=== PATIENT | male | born 1940 | race Caucasian/White ===

== ENCOUNTER 2020-12-17 14:35 | Observation (INO) | payer BC ==
[~2020-12-17] VITALS: Ht 188 cm; Wt 91.5 kg
[~2020-12-17 14:35] MED LIST: Aspirin EC81 MG PO; HYDCHL25; HYDCHL25 PO; LOSA50 PO; LOSHYD100; POTA10T; Stool Softener100 MG
[2020-12-17 16:12] LABS: Alanine Aminotransfer (ALT/SGP 16 U/L (12-78); Albumin, Blood 3.3 g/dL (3.4-5.0); Albumin/Globulin Ratio 1.4 (0.8-1.8); Alk Phos 65 U/L (50-136); Anion Gap 6 mmol/L (6-16); Aspartate Aminotrans (AST/SGOT 10 U/L (12-37); Bilirubin, Total 0.3 mg/dL (0.1-1.0); Blood Urea Nitrogen 44 mg/dL (8-24); Bun/Creatinine Ratio 56.6 (12.0-20.0); CO2, Blood 25 mmol/L (21-32); Calcium, Blood 8.4 mg/dL (8.5-10.1); Chloride, Blood 112 mmol/L (98-108); Creatinine, Blood 0.78 mg/dL (0.60-1.20); Globulin, Blood 2.4 g/dL (2.2-4.0); Glomerular Filtration Rate >60 (60-); Glucose, Blood 108 mg/dL (70-99); Potassium, Blood 3.8 mmol/L (3.5-5.5); Sodium, Blood 143 mmol/L (136-145); Total Protein, Blood 5.7 g/dL (6.4-8.2); Troponin I <0.015 ng/mL (0.000-0.040)
[2020-12-17 16:24] LABS: Source, Urine Clean Catch
[2020-12-17 16:47] LABS: Appearance, Urine Clear (Clear); Bilirubin, Urine Neg (Neg); Blood, Urine Neg (Neg); Color, Urine Yellow (P-Yellow); Glucose Qualitative, Urine Neg (Neg); Ketones, Urine Neg (Neg); Leukocyte Esterase, Urine 1+ (Neg); Nitrite, Urine Neg (Neg); Protein, Urine Neg (Neg); Urobilinogen, Urine NORM (Normal)
[2020-12-17 17:05] LABS: BASOPHILS ABSOLUTE AUTO 0.04 K/mm3 (0.00-0.23); BASOPHILS PERCENT AUTO 0 % (0-2); EOSINOPHILS ABSOLUTE AUTO 0.01 K/mm3 (0.00-0.68); EOSINOPHILS PERCENT AUTO 0 % (0-6); Hematocrit 27.5 % (37.0-53.0); Hemoglobin 9.2 g/dL (13.5-17.5); IMMATURE GRAN ABSOLUTE AUTO 0.19 K/mm3 (0.00-0.10); IMMATURE GRAN PERCENT AUTO 1 % (0-1); LYMPHOCYTES ABSOLUTE AUTO 1.18 K/mm3 (0.84-5.20); LYMPHOCYTES PERCENT AUTO 8 % (21-46); MONOCYTES ABSOLUTE AUTO 0.58 K/mm3 (0.16-1.47); MONOCYTES PERCENT AUTO 4 % (4-13); Mean Corpuscular HGB 30.9 pg (26.0-34.0); Mean Corpuscular HGB Conc 33.5 g/dL (31.5-36.5); Mean Corpuscular Volume 92 fL (80-100); Mean Platelet Volume 10.3 fL (9.1-12.4); NEUTROPHILS ABSOLUTE AUTO 12.73 K/mm3 (1.96-9.15); NEUTROPHILS PERCENT AUTO 86 % (41-73); Platelet Count 295 K/mm3 (150-400); RDW Coefficient Variation 13.3 % (11.7-14.2); RDW Standard Deviation 44.4 fL (35.1-46.3); Red Blood Cell Count 2.98 M/mm3 (4.30-5.90); White Blood Cell Count 14.73 K/mm3 (4.00-11.30)
[2020-12-17 17:16] LABS: Bacteria Mod /hpf; Red Blood Cells, Urine 0-2 /hpf (0-2); Squamous Epithelial Cells Rare /hpf (Few)
[2020-12-17] MEDS ORDERED: LATANOPROST2.5 M3 BOTHEYES (18:53)
[2020-12-17] MEDS ORDERED: LOSARTAN POTAS100 MG PO (18:53)
[2020-12-17] MEDS ORDERED: POTCHL20ER PO (19:24)
[2020-12-17 22:06] LABS: IMMATURE RETIC FRACTION 19.1 % (2.3-16.0); RETIC HGB EQUIVALENT 36.7 pg (28.20-36.60); RETICULOCYTE ABSOLUTE 0.1048 M/mm3 (0.0200-0.1100); RETICULOCYTE COUNT PERCENT 3.64 % (0.50-2.50)
[2020-12-17 22:16] LABS: Percent Saturation 36.7 % (20.0-50.0)
[2020-12-18 05:18] LABS: BASOPHILS ABSOLUTE AUTO 0.04 K/mm3 (0.00-0.23); BASOPHILS PERCENT AUTO 0 % (0-2); EOSINOPHILS ABSOLUTE AUTO 0.14 K/mm3 (0.00-0.68); EOSINOPHILS PERCENT AUTO 1 % (0-6); Hematocrit 22.7 % (37.0-53.0); Hemoglobin 7.8 g/dL (13.5-17.5); IMMATURE GRAN ABSOLUTE AUTO 0.09 K/mm3 (0.00-0.10); IMMATURE GRAN PERCENT AUTO 1 % (0-1); LYMPHOCYTES ABSOLUTE AUTO 2.56 K/mm3 (0.84-5.20); LYMPHOCYTES PERCENT AUTO 23 % (21-46); MONOCYTES ABSOLUTE AUTO 0.79 K/mm3 (0.16-1.47); MONOCYTES PERCENT AUTO 7 % (4-13); Mean Corpuscular HGB 31.2 pg (26.0-34.0); Mean Corpuscular HGB Conc 34.4 g/dL (31.5-36.5); Mean Corpuscular Volume 91 fL (80-100); Mean Platelet Volume 10.2 fL (9.1-12.4); NEUTROPHILS ABSOLUTE AUTO 7.43 K/mm3 (1.96-9.15); NEUTROPHILS PERCENT AUTO 67 % (41-73); Platelet Count 240 K/mm3 (150-400); RDW Coefficient Variation 13.9 % (11.7-14.2); RDW Standard Deviation 45.1 fL (35.1-46.3); White Blood Cell Count 11.05 K/mm3 (4.00-11.30)
[2020-12-18 05:59] LABS: Alanine Aminotransfer (ALT/SGP 12 U/L (12-78); Albumin/Globulin Ratio 1.4 (0.8-1.8); Alk Phos 65 U/L (50-136); Anion Gap 5 mmol/L (6-16); Aspartate Aminotrans (AST/SGOT 6 U/L (12-37); Bilirubin, Total 0.2 mg/dL (0.1-1.0); Blood Urea Nitrogen 35 mg/dL (8-24); Bun/Creatinine Ratio 48.3 (12.0-20.0); CO2, Blood 26 mmol/L (21-32); Calcium, Blood 8.4 mg/dL (8.5-10.1); Chloride, Blood 113 mmol/L (98-108); Creatinine, Blood 0.73 mg/dL (0.60-1.20); Globulin, Blood 2.1 g/dL (2.2-4.0); Glomerular Filtration Rate >60 (60-); Glucose, Blood 105 mg/dL (70-99); Potassium, Blood 3.1 mmol/L (3.5-5.5); Sodium, Blood 144 mmol/L (136-145); Total Protein, Blood 5.1 g/dL (6.4-8.2)
--- NOTE | 2020-12-18 06:39 | NUR ---
SHIFT SUMMARY PATIENT ALERT AND ORIENTED. IS QUIET AND SLOW TO RESPOND. ANSWERS QUESTIONS APPROPRIATELY. PATIENT HAD NO COMPLAINTS OF PAIN OR SHORTNESS OF BREATH. SLEPT WELL OVERNIGHT. IV PATENT AND INFUSING. BED IN LOWEST POSITION WITH WHEELS LOCKED AND ALARM ON. CALL LIGHT WITHIN REACH. REPORT GIVEN TO ONCOMING RN.
--- NOTE | 2020-12-18 19:14 | NUR ---
SHIFT SUMMARY PT IS AO AND CONFUSED AT TIMES. PT DENIES PAIN, N/V, SOB. PT AMBULATES WITH ONE PERSON ASSIST. PT HAD MELENA TODAY AND GUIAIC STOOL SAMPLE SENT TO LAB. PT'S VISITED TODAY. PT WORKED WITH PT/OT AND DID WELL. TELE HAS BEEN RUNNING SINUS RHYTHM. PLAN IS TO MONITOR HGB LEVELS. PT IS IN BED, CALL LIGHT IN REACH, BED IN LOW POSITION.
[2020-12-19 05:27] LABS: BASOPHILS ABSOLUTE AUTO 0.04 K/mm3 (0.00-0.23); BASOPHILS PERCENT AUTO 1 % (0-2); EOSINOPHILS ABSOLUTE AUTO 0.59 K/mm3 (0.00-0.68); EOSINOPHILS PERCENT AUTO 7 % (0-6); Hematocrit 20.9 % (37.0-53.0); IMMATURE GRAN ABSOLUTE AUTO 0.16 K/mm3 (0.00-0.10); IMMATURE GRAN PERCENT AUTO 2 % (0-1); LYMPHOCYTES ABSOLUTE AUTO 2.51 K/mm3 (0.84-5.20); LYMPHOCYTES PERCENT AUTO 30 % (21-46); MONOCYTES ABSOLUTE AUTO 0.65 K/mm3 (0.16-1.47); MONOCYTES PERCENT AUTO 8 % (4-13); Mean Corpuscular HGB 31.8 pg (26.0-34.0); Mean Corpuscular HGB Conc 33.5 g/dL (31.5-36.5); Mean Corpuscular Volume 95 fL (80-100); Mean Platelet Volume 10.3 fL (9.1-12.4); NEUTROPHILS ABSOLUTE AUTO 4.53 K/mm3 (1.96-9.15); NEUTROPHILS PERCENT AUTO 53 % (41-73); Platelet Count 219 K/mm3 (150-400); RDW Coefficient Variation 14.4 % (11.7-14.2); RDW Standard Deviation 47.6 fL (35.1-46.3); White Blood Cell Count 8.48 K/mm3 (4.00-11.30)
[2020-12-19 06:07] LABS: Albumin, Blood 2.8 g/dL (3.4-5.0); Anion Gap 5 mmol/L (6-16); Blood Urea Nitrogen 25 mg/dL (8-24); Bun/Creatinine Ratio 32.5 (12.0-20.0); CO2, Blood 25 mmol/L (21-32); Chloride, Blood 113 mmol/L (98-108); Creatinine, Blood 0.77 mg/dL (0.60-1.20); Glomerular Filtration Rate >60 (60-); Glucose, Blood 97 mg/dL (70-99); Phosphorus, Blood 3.2 mg/dL (2.5-4.9); Potassium, Blood 3.6 mmol/L (3.5-5.5); Sodium, Blood 143 mmol/L (136-145)
--- NOTE | 2020-12-19 06:42 | NUR ---
SHIFT SUMMARY PATIENT ALERT AND ORIENTED. HAD NO COMPLAINTS OF PAIN OR SHORTNESS OF BREATH. SLEPT WELL OVERNIGHT WITH MINIMAL NEEDS. IV PATENT AND FLUSHED. BED IN LOWEST POSITION WITH WHEELS LOCKED AND ALARM ON. CALL LIGHT WITHIN REACH. REPORT GIVEN TO ONCOMING RN.
--- NOTE | 2020-12-19 08:54 | NUR ---
SPOKE TO DR LOUIS- HE IS AWARE THE PT HAD BREAKFAST. PLAN IS TO MAKE THE PT NPO AT THIS TIME. HOWEVER CT REQUESTED THE PT TO DRINK WATER UNTIL THE CT SCAN. CT PLANNED FOR 1000. PT CURRENTLY SITTING UP IN THE CHAIR. VITALS STABLE DENIES ANY DIZZINESS. HGB 7.0. PLANNED FOR 2 UNITS PRBC, LAB DRAWING THE TYPE AND CROSS CURRENTLY. PER DR LOUIS HOLD ASPIRIN THIS MORNING IV LASIX TO BE GIVEN AFTER THE FIRST UNIT OF PRBC'S. [facility] TRANSFER TO [facility] WHEN A BED IS AVAILABLE, IMAGES HAVE ALREADY BEEN SENT PER SIDE GLUER LORI. WILL CTM PT, COVID TEST COMPLETED PRE TRANSFER AWAITING RESILTS.
--- NOTE | 2020-12-19 09:16 | NUR ---
CALLED IMAGING- CHANGED THE ORDER FOR THE CT SCAN TO STAT AND KAILA IS REQUESTING THE IMAGES STAT. CALLED IMAGING AND NOTIFIED OF THE CHANGE. ORIGIONAL PLAN FOR CT WAS 1000.
[2020-12-19 09:33] LABS: Influenza A, PCR NEGATIVE (NEGATIVE); Influenza B, PCR NEGATIVE (NEGATIVE); Resp Syncytial Virus, PCR NEGATIVE (NEGATIVE); SARS-Cov-2 (COVID-19) PCR, MMC NEGATIVE (NEGATIVE)
[2020-12-19 09:51] LABS: Stool Occult Blood Guaiac 1 Pos (Neg)
--- NOTE | 2020-12-19 10:40 | NUR ---
SPOKE TO DR LOUIS- ORDER RECIEVED TO CANCEL THE CT ABDOMEN THE PT CAN HAVE IT DONE AFTER THE TRANSFER TO [facility].
[2020-12-19 16:03] LABS: Hematocrit 24.6 % (37.0-53.0); Hemoglobin 8.3 g/dL (13.5-17.5); Mean Corpuscular HGB 31.2 pg (26.0-34.0); Mean Corpuscular HGB Conc 33.7 g/dL (31.5-36.5); Mean Corpuscular Volume 93 fL (80-100); Mean Platelet Volume 9.7 fL (9.1-12.4); Platelet Count 238 K/mm3 (150-400); RDW Coefficient Variation 14.7 % (11.7-14.2); RDW Standard Deviation 47.9 fL (35.1-46.3); Red Blood Cell Count 2.66 M/mm3 (4.30-5.90); White Blood Cell Count 9.49 K/mm3 (4.00-11.30)
--- NOTE | 2020-12-19 16:40 | NUR ---
DISCHARGE NOTE- PT ANGIE TRANSFERED TO [facility] IN [place], REPORT CALLED TO DAQUAN SERRATO AT 1531. PT ALERT AND ORIENTED AT THE BEDSIDE AT THE TIME OF TRANSFER. SPOUSE AWARE OF THE PT ISSUE AND REASON FOR TRANSFER. PT STILL DENIES ANY PAIN REPEAT CBC COMPLETED PRIOR TO PT LEAVING HGB UP TO 8.3 FROM 7.0 AFTER 1 UNIT PRBC'S WERE TRANSFUSED. VITALS HAVE REMAINED STABLE T/O THE DAY. ONE LARGE BLACK TARRY STOOL WAS PASSED AROUND 1430 TODAY. PASSED ALL ON IN REPORT TO DAQUAN SERRATO. PT HAD NO S&S OF DISTRESS NOTED AT THE TIME OF TRANSFER. PER REPORT FROM [place] SERRATO PT SPOUSE CAN COME TO SEE HIM 1 VISITOR PER PT PER DAY 24 HOURS A DAY.
== END 2020-12-19 16:20 | disposition short-term general hospital (02) ==
LOC: ER 14:35 → MEDS 14:36 → ER 19:09 → ERHOLD 19:09 → MEDS 21:25 → ENPENDDIS 12-19 09:46 → MEDS 12-19 16:20
PROVIDERS: Emergency Medicine; Family Medicine; ADMIT Internal Medicine
DX: A41.9 Sepsis, unspecified organism (principal); N39.0 Urinary tract infection, site not specified; I10 Essential (primary) hypertension; D64.9 Anemia, unspecified; E86.0 Dehydration; R53.1 Weakness; R42 Dizziness and giddiness; K92.1 Melena; K92.2 Gastrointestinal hemorrhage, unspecified; R63.0 Anorexia; Z68.25 Body mass index [BMI] 25.0-25.9, adult; Z87.891 Personal history of nicotine dependence
CPT/HCPCS: 0241U; 36415; 70450; 71260; 80053; 80069; 81001; 82272; 82728; 83540; 83550; 83735; 83880; 84484; 85025; 85027; 85045; 87086; 93005; 93010; 96372-59; 96374; 97116; 97162; 97165; 97535; 99285-25; A9270; A9270-GY; C9113; J0696; J1650; J7030; J7050; P9016; Q9967

== ENCOUNTER → 2021-01-09 | Outpatient (CLI) | payer BC ==
[~2021-01-09] MED LIST changes: +LATANOPROST2.5 M3 BOTHEYES; +LOSARTAN POTAS100 MG PO; +POTCHL20ER PO
[2021-01-09 08:41] LABS: Source, Urine Clean Catch
[2021-01-09 13:47] LABS: Appearance, Urine Clear (Clear); Bilirubin, Urine Neg (Neg); Blood, Urine 1+ (Neg); Color, Urine Yellow (P-Yellow); Glucose Qualitative, Urine Neg (Neg); Ketones, Urine Neg (Neg); Leukocyte Esterase, Urine Neg (Neg); Nitrite, Urine Neg (Neg); Protein, Urine Neg (Neg); Urobilinogen, Urine NORM (Normal)
[2021-01-09 13:58] LABS: Bacteria Rare /hpf; Squamous Epithelial Cells Few /hpf (Few)
== END | disposition home or self-care (01) ==
LOC: LAB 08:40 → LAB SHORT 08:40
PROVIDERS: Internal Medicine
DX: R82.90 Unspecified abnormal findings in urine (principal)
CPT/HCPCS: 81001

== ENCOUNTER → 2021-03-02 | Outpatient (CLI) | payer BC | LOC: LAB SHORT 16:00 → LAB 16:00 → EDSTATUS 01-06 11:55 → LAB FUT 01-06 11:55 | DX: A04.8 Other specified bacterial intestinal infections (principal); R82.90 Unspecified abnormal findings in urine | CPT/HCPCS: 87338 ==

== ENCOUNTER 2021-04-26 15:28 | Emergency (ER) | payer BC ==
[~2021-04-26] VITALS: Ht 188 cm; Wt 87.5 kg
[2021-04-26 15:59] LABS: BASOPHILS ABSOLUTE AUTO 0.04 K/mm3 (0.00-0.23); BASOPHILS PERCENT AUTO 0 % (0-2); EOSINOPHILS ABSOLUTE AUTO 0.05 K/mm3 (0.00-0.68); EOSINOPHILS PERCENT AUTO 0 % (0-6); Hematocrit 41.2 % (37.0-53.0); Hemoglobin 13.9 g/dL (13.5-17.5); IMMATURE GRAN ABSOLUTE AUTO 0.07 K/mm3 (0.00-0.10); IMMATURE GRAN PERCENT AUTO 0 % (0-1); LYMPHOCYTES ABSOLUTE AUTO 0.91 K/mm3 (0.84-5.20); LYMPHOCYTES PERCENT AUTO 6 % (21-46); MONOCYTES ABSOLUTE AUTO 0.87 K/mm3 (0.16-1.47); MONOCYTES PERCENT AUTO 6 % (4-13); Mean Corpuscular HGB 29.3 pg (26.0-34.0); Mean Corpuscular HGB Conc 33.7 g/dL (31.5-36.5); Mean Corpuscular Volume 87 fL (80-100); Mean Platelet Volume 9.4 fL (9.1-12.4); NEUTROPHILS ABSOLUTE AUTO 13.96 K/mm3 (1.96-9.15); NEUTROPHILS PERCENT AUTO 88 % (41-73); Platelet Count 253 K/mm3 (150-400); RDW Coefficient Variation 13.9 % (11.7-14.2); RDW Standard Deviation 43.9 fL (35.1-46.3); Red Blood Cell Count 4.75 M/mm3 (4.30-5.90)
[2021-04-26 16:19] LABS: Alanine Aminotransfer (ALT/SGP 17 U/L (12-78); Albumin/Globulin Ratio 1.3 (0.8-1.8); Alk Phos 68 U/L (50-136); Anion Gap 9 mmol/L (6-16); Aspartate Aminotrans (AST/SGOT 27 U/L (12-37); Bilirubin, Total 0.9 mg/dL (0.1-1.0); Blood Urea Nitrogen 23 mg/dL (8-24); Bun/Creatinine Ratio 20.9 (12.0-20.0); CO2, Blood 23 mmol/L (21-32); CPK Creatine Kinase 127 U/L (39-308); Calcium, Blood 9.1 mg/dL (8.5-10.1); Chloride, Blood 109 mmol/L (98-108); Globulin, Blood 3.1 g/dL (2.2-4.0); Glomerular Filtration Rate >60 (60-); Glucose, Blood 104 mg/dL (70-99); Sodium, Blood 141 mmol/L (136-145); Total Protein, Blood 7.1 g/dL (6.4-8.2)
== END 2021-04-26 21:12 | disposition home or self-care (01) ==
LOC: ER 15:28
PROVIDERS: Physician Assistant
DX: R55 Syncope and collapse (principal); E86.0 Dehydration; I10 Essential (primary) hypertension; Z87.891 Personal history of nicotine dependence; Z79.82 Long term (current) use of aspirin; Z79.899 Other long term (current) drug therapy; Z91.048 Other nonmedicinal substance allergy status
CPT/HCPCS: 80053; 82550; 85025; 93005; 93010; 99284-25; J7120

== ENCOUNTER 2021-05-19 12:37 | Emergency (ER) | payer BC, MEDICARE ==
[~2021-05-19] VITALS: Ht 188 cm; Wt 87.5 kg
[2021-05-19 13:38] LABS: BASOPHILS ABSOLUTE AUTO 0.05 K/mm3 (0.00-0.23); BASOPHILS PERCENT AUTO 0 % (0-2); EOSINOPHILS PERCENT AUTO 0 % (0-6); Hematocrit 45.9 % (37.0-53.0); IMMATURE GRAN ABSOLUTE AUTO 0.23 K/mm3 (0.00-0.10); IMMATURE GRAN PERCENT AUTO 1 % (0-1); LYMPHOCYTES ABSOLUTE AUTO 1.41 K/mm3 (0.84-5.20); LYMPHOCYTES PERCENT AUTO 6 % (21-46); MONOCYTES ABSOLUTE AUTO 1.77 K/mm3 (0.16-1.47); MONOCYTES PERCENT AUTO 7 % (4-13); Mean Corpuscular HGB 30.6 pg (26.0-34.0); Mean Corpuscular HGB Conc 34.9 g/dL (31.5-36.5); Mean Corpuscular Volume 88 fL (80-100); Mean Platelet Volume 9.7 fL (9.1-12.4); NEUTROPHILS ABSOLUTE AUTO 20.61 K/mm3 (1.96-9.15); NEUTROPHILS PERCENT AUTO 86 % (41-73); Platelet Count 302 K/mm3 (150-400); RDW Coefficient Variation 14.4 % (11.7-14.2); RDW Standard Deviation 46.4 fL (35.1-46.3); Red Blood Cell Count 5.23 M/mm3 (4.30-5.90); White Blood Cell Count 24.07 K/mm3 (4.00-11.30)
[2021-05-19 13:54] LABS: Alanine Aminotransfer (ALT/SGP 22 U/L (12-78); Albumin, Blood 3.9 g/dL (3.4-5.0); Alk Phos 76 U/L (50-136); Anion Gap 9 mmol/L (6-16); Aspartate Aminotrans (AST/SGOT 19 U/L (12-37); Bilirubin, Total 0.9 mg/dL (0.1-1.0); Blood Urea Nitrogen 22 mg/dL (8-24); Bun/Creatinine Ratio 24.9 (12.0-20.0); CO2, Blood 24 mmol/L (21-32); Chloride, Blood 103 mmol/L (98-108); Creatinine, Blood 0.88 mg/dL (0.60-1.20); Globulin, Blood 3.9 g/dL (2.2-4.0); Glomerular Filtration Rate >60 (60-); Glucose, Blood 129 mg/dL (70-99); Potassium, Blood 3.9 mmol/L (3.5-5.5); Sodium, Blood 136 mmol/L (136-145); Total Protein, Blood 7.8 g/dL (6.4-8.2)
[2021-05-19 16:15] LABS: Source, Urine Clean Catch
[2021-05-19 16:25] LABS: Appearance, Urine Hazy (Clear); Bilirubin, Urine Neg (Neg); Blood, Urine 2+ (Neg); Color, Urine Amber (P-Yellow); Glucose Qualitative, Urine Neg (Neg); Ketones, Urine 1+ (Neg); Leukocyte Esterase, Urine 3+ (Neg); Nitrite, Urine Neg (Neg); Protein, Urine 2+ (Neg); Specific Gravity, Urine 1.025 (1.003-1.022); Urobilinogen, Urine 1+ (Normal)
[2021-05-19 16:39] LABS: Bacteria Mod /hpf; Calcium Oxalate Crystals Few /hpf; Mucus Heavy (0-Heavy); Squamous Epithelial Cells Rare /hpf (Few)
[2021-05-19 16:40] LABS: Hyaline Casts 0-2 /lpf (0-2)
[2021-05-19] MEDS ORDERED: ONDA4ODT MM (18:12)
[2021-05-19] MEDS ORDERED: CEFP200 PO (18:12)
[2021-05-19] MEDS ORDERED: ERYT.5TO BOTHEYES (18:12)
== END 2021-05-19 18:23 | disposition home or self-care (01) ==
LOC: ER 12:37
PROVIDERS: Physician Assistant
DX: N39.0 Urinary tract infection, site not specified (principal); I10 Essential (primary) hypertension; Z91.048 Other nonmedicinal substance allergy status; F03.90 Unspecified dementia, unspecified severity, without behavioral disturbance, psychotic disturbance, mood disturbance, and anxiety; Z79.82 Long term (current) use of aspirin; Z79.899 Other long term (current) drug therapy
CPT/HCPCS: 36415; 74176; 80053; 81001; 83690; 84484; 85025; 87086; 99284-25; A9270

== ENCOUNTER → 2021-05-28 | Outpatient (CLI) | payer BC ==
[~2021-05-28] MED LIST changes: +CEFP200 PO; +ERYT.5TO BOTHEYES; +ONDA4ODT MM
[2021-05-28 13:25] LABS: Source, Urine Clean Catch
[2021-05-28 18:59] LABS: Appearance, Urine Clear (Clear); Bilirubin, Urine Neg (Neg); Blood, Urine 1+ (Neg); Color, Urine Yellow (P-Yellow); Glucose Qualitative, Urine Neg (Neg); Ketones, Urine Neg (Neg); Leukocyte Esterase, Urine 1+ (Neg); Nitrite, Urine Neg (Neg); Protein, Urine Neg (Neg); Specific Gravity, Urine 1.015 (1.003-1.022); Urobilinogen, Urine NORM (Normal)
[2021-05-28 20:20] LABS: Bacteria Rare /hpf; Red Blood Cells, Urine 0-2 /hpf (0-2); Squamous Epithelial Cells Few /hpf (Few)
[2021-05-28 20:21] LABS: Transitional Epithelial Cells Few /hpf (0-Rare)
== END | disposition home or self-care (01) ==
LOC: LAB 13:23 → LAB SHORT 13:23
PROVIDERS: Internal Medicine
DX: N39.0 Urinary tract infection, site not specified (principal)
CPT/HCPCS: 81001

== ENCOUNTER → 2021-07-01 | Outpatient (CLI) | payer BC | END | disposition home or self-care (01) | LOC: LAB 14:43 → LAB SHORT 14:43 | DX: D48.5 Neoplasm of uncertain behavior of skin (principal) | CPT/HCPCS: 88305 ==

== ENCOUNTER 2023-03-04 15:56 | Emergency (ER) | payer BC ==
[~2023-03-04] VITALS: Ht 188 cm; Wt 90.7 kg
[2023-03-04 16:42] LABS: BASOPHILS ABSOLUTE AUTO 0.03 K/mm3 (0.00-0.23); BASOPHILS PERCENT AUTO 0 % (0-2); EOSINOPHILS PERCENT AUTO 0 % (0-6); Hemoglobin 14.6 g/dL (13.5-17.5); IMMATURE GRAN ABSOLUTE AUTO 0.07 K/mm3 (0.00-0.10); IMMATURE GRAN PERCENT AUTO 1 % (0-1); LYMPHOCYTES ABSOLUTE AUTO 0.48 K/mm3 (0.84-5.20); LYMPHOCYTES PERCENT AUTO 6 % (21-46); MONOCYTES PERCENT AUTO 10 % (4-13); Mean Corpuscular HGB 31.6 pg (26.0-34.0); Mean Corpuscular HGB Conc 34.8 g/dL (31.5-36.5); Mean Corpuscular Volume 91 fL (80-100); Mean Platelet Volume 9.6 fL (9.1-12.4); NEUTROPHILS ABSOLUTE AUTO 7.07 K/mm3 (1.96-9.15); NEUTROPHILS PERCENT AUTO 84 % (41-73); Platelet Count 177 K/mm3 (150-400); RDW Coefficient Variation 12.7 % (11.7-14.2); RDW Standard Deviation 42.3 fL (35.1-46.3); Red Blood Cell Count 4.62 M/mm3 (4.30-5.90); White Blood Cell Count 8.45 K/mm3 (4.00-11.30)
[2023-03-04 17:06] LABS: Albumin, Blood 3.8 g/dL (3.4-5.0); Albumin/Globulin Ratio 1.1 (0.8-1.8); Bilirubin, Total 0.9 mg/dL (0.1-1.0); Bun/Creatinine Ratio 27.7 (12.0-20.0); Calcium, Blood 9.1 mg/dL (8.5-10.1); Creatinine, Blood 0.87 mg/dL (0.60-1.20); Globulin, Blood 3.6 g/dL (2.2-4.0); Potassium, Blood 3.7 mmol/L (3.5-5.5); Total Protein, Blood 7.4 g/dL (6.4-8.2)
[2023-03-04 17:45] LABS: Source, Urine Voided
[2023-03-04 17:47] LABS: Appearance, Urine Hazy (Clear); Bilirubin, Urine Neg (Neg); Blood, Urine 5+ (Neg); Color, Urine Amber (P-Yellow); Glucose Qualitative, Urine Neg (Neg); Ketones, Urine Neg (Neg); Leukocyte Esterase, Urine 3+ (Neg); Nitrite, Urine Pos (Neg); Protein, Urine 3+ (Neg); Urobilinogen, Urine NORM (Normal)
[2023-03-04 17:56] LABS: Bacteria Many /hpf; Squamous Epithelial Cells Rare /hpf (Few); White Blood Cells, Urine 25-50 /hpf (0-5)
[2023-03-04 18:16] LABS: Influenza A, PCR NEGATIVE (NEGATIVE); Influenza B, PCR NEGATIVE (NEGATIVE); Resp Syncytial Virus, PCR NEGATIVE (NEGATIVE); SARS-Cov-2 (COVID-19) PCR, MMC NEGATIVE (NEGATIVE)
[2023-03-04] MEDS ORDERED: CEPH500 PO (19:24)
[2023-03-04 19:30] VITALS: BP 129/67
== END 2023-03-04 19:39 | disposition home or self-care (01) ==
LOC: ER 15:56
PROVIDERS: Emergency Medicine
DX: N39.0 Urinary tract infection, site not specified (principal); Z20.822 Contact with and (suspected) exposure to COVID-19; Z87.891 Personal history of nicotine dependence; Z88.8 Allergy status to other drugs, medicaments and biological substances; Z79.82 Long term (current) use of aspirin; Z79.2 Long term (current) use of antibiotics; Z79.899 Other long term (current) drug therapy; I10 Essential (primary) hypertension; Z86.59 Personal history of other mental and behavioral disorders
CPT/HCPCS: 0241U; 71046; 80053; 81001; 85025; 87077; 87086; 87186; 93005; 93010; 96365; 99284-25; A9270; J0696

== ENCOUNTER → 2023-03-28 | Outpatient (CLI) | payer BC ==
[~2023-03-28] MED LIST changes: +CEPH500 PO
[2023-03-28 12:53] LABS: Source, Urine Clean Catch
[2023-03-28 17:47] LABS: Appearance, Urine Cloudy (Clear); Bilirubin, Urine Neg (Neg); Blood, Urine 1+ (Neg); Color, Urine Yellow (P-Yellow); Glucose Qualitative, Urine Neg (Neg); Ketones, Urine Neg (Neg); Leukocyte Esterase, Urine 3+ (Neg); Nitrite, Urine Pos (Neg); Protein, Urine 2+ (Neg); Urobilinogen, Urine NORM (Normal)
[2023-03-28 17:58] LABS: White Blood Cells, Urine TNTC /hpf (0-5)
[2023-03-28 17:59] LABS: Bacteria Many /hpf; Squamous Epithelial Cells Not Seen /hpf (Few)
== END | disposition home or self-care (01) ==
LOC: LAB 11:48 → LAB SHORT 11:48
PROVIDERS: Internal Medicine
DX: N39.0 Urinary tract infection, site not specified (principal)
CPT/HCPCS: 81001; 87077; 87086; 87186

== ENCOUNTER → 2023-04-11 | Outpatient (CLI) | payer BC ==
[2023-04-11 14:10] LABS: Source, Urine Clean Catch
[2023-04-11 17:56] LABS: Appearance, Urine Clear (Clear); Bilirubin, Urine Neg (Neg); Blood, Urine Neg (Neg); Color, Urine Yellow (P-Yellow); Glucose Qualitative, Urine Neg (Neg); Ketones, Urine Neg (Neg); Leukocyte Esterase, Urine Neg (Neg); Nitrite, Urine Neg (Neg); Protein, Urine Neg (Neg); Specific Gravity, Urine 1.015 (1.003-1.022); Urobilinogen, Urine NORM (Normal)
== END | disposition home or self-care (01) ==
LOC: LAB SHORT 13:35 → LAB 13:35 → EDSTATUS 03-31 13:45 → LAB FUT 03-31 13:45
PROVIDERS: Internal Medicine
DX: N39.0 Urinary tract infection, site not specified (principal)
CPT/HCPCS: 81003

== ENCOUNTER 2024-05-26 16:10 | Inpatient (IN) | payer MEDICARE, BC ==
[~2024-05-26] VITALS: Ht 190.5 cm; Wt 89.5 kg
[~2024-05-26 16:10] MED LIST changes: -LATANOPROST2.5 M3 BOTHEYES
[2024-05-26 17:53] LABS: BASOPHILS ABSOLUTE AUTO 0.04 K/mm3 (0.00-0.23); BASOPHILS PERCENT AUTO 0 % (0-2); EOSINOPHILS PERCENT AUTO 0 % (0-6); Hematocrit 46.2 % (37.0-53.0); Hemoglobin 15.2 g/dL (13.5-17.5); IMMATURE GRAN ABSOLUTE AUTO 0.13 K/mm3 (0.00-0.10); IMMATURE GRAN PERCENT AUTO 1 % (0-1); LYMPHOCYTES ABSOLUTE AUTO 0.93 K/mm3 (0.84-5.20); LYMPHOCYTES PERCENT AUTO 5 % (21-46); MONOCYTES ABSOLUTE AUTO 0.92 K/mm3 (0.16-1.47); MONOCYTES PERCENT AUTO 5 % (4-13); Mean Corpuscular HGB 30.2 pg (26.0-34.0); Mean Corpuscular HGB Conc 32.9 g/dL (31.5-36.5); Mean Corpuscular Volume 92 fL (80-100); Mean Platelet Volume 9.5 fL (9.1-12.4); NEUTROPHILS ABSOLUTE AUTO 16.48 K/mm3 (1.96-9.15); NEUTROPHILS PERCENT AUTO 89 % (41-73); Platelet Count 288 K/mm3 (150-400); RDW Coefficient Variation 12.5 % (11.7-14.2); RDW Standard Deviation 42.3 fL (35.1-46.3); Red Blood Cell Count 5.03 M/mm3 (4.30-5.90)
[2024-05-26 18:13] LABS: Albumin, Blood 3.7 g/dL (3.4-5.0); Bilirubin, Total 0.7 mg/dL (0.1-1.0); Bun/Creatinine Ratio 19.6 (12.0-20.0); Creatinine, Blood 0.66 mg/dL (0.60-1.20); Globulin, Blood 3.8 g/dL (2.2-4.0); Potassium, Blood 3.6 mmol/L (3.5-5.5); Total Protein, Blood 7.5 g/dL (6.4-8.2)
[2024-05-26] MEDS ORDERED: Lactulose 200 GM/300 ML Enema 300ML BTL PR ONE (18:55)
[2024-05-27 12:23] LABS: Source, Urine Clean Catch
[2024-05-27 12:27] LABS: Appearance, Urine Hazy (Clear); Bilirubin, Urine Neg (Neg); Blood, Urine 4+ (Neg); Color, Urine Amber (P-Yellow); Glucose Qualitative, Urine Neg (Neg); Ketones, Urine 3+ (Neg); Leukocyte Esterase, Urine 3+ (Neg); Nitrite, Urine Pos (Neg); Protein, Urine 2+ (Neg); Specific Gravity, Urine 1.025 (1.003-1.022); Urobilinogen, Urine NORM (Normal)
[2024-05-27 12:42] LABS: White Blood Cells, Urine 25-50 /hpf (0-5)
[2024-05-27 12:43] LABS: Bacteria Many /hpf; Squamous Epithelial Cells Not Seen /hpf (Few)
[2024-05-27] MEDS ORDERED: NS 1,000 ML IV SCH ×2 (12:50→14:00)
[2024-05-27] MEDS ORDERED: CefTRIAXone Sodium 1,000 MG in NS 100 ML IV ONE (12:50)
[2024-05-27] MEDS ORDERED: FLU VACC TS2024-25(6MOS UP)/PF 45 MCG/0.5 ML SYRINGE IM SCH (13:10)
--- NOTE | 2024-05-27 19:20 | NUR ---
ADMIT/SHIFT SUMMARY: PT UNABLE TO WAKE LONG ENOUGH FOR INITAL ORIENTATION QUESTIONS. PT APPEARS VERY LETHARGIC AND WILL OPEN EYES LONG ENOUGH TO STATE "YES" OR "NO." PT AT BEDSIDE THROUGHOUT SHIFT AND ABLE TO ASSIST WITH ASSESSMENT. CHRISTIANSON IN PLACE DRAINING YELLOW URINE TO GRAVITY. NS INFUSING @125/HR. SMALL PATCHES OF ECZEMA NOTED ON RFA. REDNESS NOTED ON SACRAL REGION. PT STATES PT HAS BEEN DECLINING FOR SEVERAL WEEKS. PER TANK CAR MECHANIC, PT HAS HAD "SEVERAL BOWEL MOVEMENTS" POST ENEMA BUT HAS NOT HAD ANY SINCE ARRIVAL TO MEDICAL FLOOR. PT GRUNTS IN PAIN BUT UNABLE TO STATE WHERE PAIN IS LOCATED. CALL LIGHT IN REACH. BED IN LOWEST POSITION.
[2024-05-27 19:26] VITALS: BP 157/59
[2024-05-27] MEDS ORDERED: Latanoprost 0.005% Opth Soln 2.5 ML BOTHEYES SCH (21:00)
[2024-05-27] MEDS ORDERED: Sennosides 8.6 MG Tab PO SCH (21:00)
[2024-05-27] MEDS ORDERED: Docusate Sodium 100 MG Cap PO SCH (21:00)
[2024-05-27] MEDS ORDERED: Lactobacil 2-S.Thermo-Bifido 1 1 Cap PO SCH (21:00)
--- NOTE | 2024-05-27 21:02 | NUR ---
Upon assessment, RN noted patient felt warm to touch/hot. Temperature previously assessed via temporal sensor at around 99 degrees F, reassessed via axillary to 102.8 degrees F. RN notified Christiano with hospitalist services, provider to place orders for suppository route Tylenol for fever.
[2024-05-27] MEDS ORDERED: Acetaminophen 650 MG Supp PR PRN (21:05)
[2024-05-28 02:26] VITALS: BP 146/59
[2024-05-28 05:48] LABS: Hematocrit 35.6 % (37.0-53.0); Hemoglobin 11.9 g/dL (13.5-17.5); Mean Corpuscular HGB 30.6 pg (26.0-34.0); Mean Corpuscular HGB Conc 33.4 g/dL (31.5-36.5); Mean Corpuscular Volume 92 fL (80-100); Mean Platelet Volume 10.1 fL (9.1-12.4); Platelet Count 230 K/mm3 (150-400); RDW Coefficient Variation 12.9 % (11.7-14.2); RDW Standard Deviation 43.1 fL (35.1-46.3); Red Blood Cell Count 3.89 M/mm3 (4.30-5.90); White Blood Cell Count 19.77 K/mm3 (4.00-11.30)
[2024-05-28 06:16] LABS: Bun/Creatinine Ratio 18.8 (12.0-20.0); Calcium, Blood 7.9 mg/dL (8.5-10.1); Creatinine, Blood 0.69 mg/dL (0.60-1.20); Potassium, Blood 3.3 mmol/L (3.5-5.5)
[2024-05-28] MEDS ORDERED: Potassium Chloride 20 MEQ TabCR PO ONE (07:25)
[2024-05-28] MEDS ORDERED: Aspirin 81 MG TabEC PO SCH (09:00)
[2024-05-28] MEDS ORDERED: Losartan Potassium 50 MG Tab PO SCH (09:00)
[2024-05-28] MEDS ORDERED: HydroCHLOROthiazide 25 mg Tab PO SCH (09:00)
[2024-05-28] MEDS ORDERED: CefTRIAXone Sodium 1,000 MG in NS 100 ML IV SCH (09:00)
[2024-05-28] MEDS ORDERED: Enoxaparin 40 MG/0.4 ML SYR SC SCH (09:00)
[2024-05-28 15:34] VITALS: BP 132/58
--- NOTE | 2024-05-28 16:50 | NUR ---
VSS, A-Ox1, confused but follows directions, shows no signs of pain, no signs of SOB, ambulates with 1-2x assist and walker to chair, on RA. Lungs diminished, heart regular, bowel sounds normative, mckinnon in place draining clear yellow urine. Pt can make some needs known, call maki in hand, bed in lowest position.
[2024-05-28] MEDS ORDERED: Acetaminophen 325 MG TABLET PO PRN (18:27)
[2024-05-28 19:20] VITALS: BP 143/54
[2024-05-29 05:14] VITALS: BP 139/60
--- NOTE | 2024-05-29 05:18 | NUR ---
SUMMARY- NO NEW ISSUES. PT REMAINS CONFUSED. PT SPENT THE NIGHT. PT HAS BEEN REPOSITIONED TOLERATED. PT CHRISTIANSON DRAINING TO GRAVITY. ORAL CARE PROVIDED. PT HAD NO FEVERS DURING THE NIGHT. CALL LIGHT IN REACH AND BED ALARM ON.
[2024-05-29 07:30] VITALS: BP 153/75
[2024-05-29 07:52] LABS: Hematocrit 37.1 % (37.0-53.0); Hemoglobin 12.6 g/dL (13.5-17.5); Mean Corpuscular HGB 30.7 pg (26.0-34.0); Mean Corpuscular Volume 91 fL (80-100); Mean Platelet Volume 9.9 fL (9.1-12.4); Platelet Count 240 K/mm3 (150-400); RDW Standard Deviation 43.1 fL (35.1-46.3)
[2024-05-29 08:21] LABS: Calcium, Blood 8.4 mg/dL (8.5-10.1); Creatinine, Blood 0.64 mg/dL (0.60-1.20); Potassium, Blood 3.4 mmol/L (3.5-5.5)
[2024-05-29] MEDS ORDERED: Potassium Chloride 20 MEQ TabCR PO ONE (11:25)
[2024-05-29 15:45] VITALS: BP 140/61
[2024-05-29 19:31] VITALS: BP 133/63
[2024-05-30 04:13] VITALS: BP 136/70
--- NOTE | 2024-05-30 05:42 | NUR ---
SUMMARY- NO NEW ISSUES. PT IS RESPONDING BETTER THIS SHIFT. PT REPOSITIONED TOLERATED. PT HAS RESTED SOUNDLY THROUGHOUT SHIFT. CALL LIGHT IN REACH AND BED ALARM ON.
[2024-05-30 06:36] LABS: Bun/Creatinine Ratio 19.7 (12.0-20.0); Calcium, Blood 8.3 mg/dL (8.5-10.1); Creatinine, Blood 0.66 mg/dL (0.60-1.20); Potassium, Blood 3.4 mmol/L (3.5-5.5)
[2024-05-30 07:17] VITALS: BP 133/82
[2024-05-30] MEDS ORDERED: Polyethylene Glycol 3350 17 gm PO PRN (07:55)
[2024-05-30] MEDS ORDERED: Potassium Chloride 20 MEQ TabCR PO ONE (07:55)
[2024-05-30] MEDS ORDERED: HydroCHLOROthiazide 25 mg Tab PO SCH (09:00)
[2024-05-30 16:21] VITALS: BP 109/46
--- NOTE | 2024-05-30 16:24 | NUR ---
VSS, A-OX2 disoriented to time and place, follows comands, denies SOB, denies any pain, ambulates with 1-2x assist with walker, on RA. Lungs diminished, heart regular, bowel sounds normative, mckinnon remove at 1020, inconitent of urine. Pt can make some needs known, call maki in hand, bed in lowest position.
[2024-05-30 20:01] VITALS: BP 135/64
[2024-05-31 04:09] VITALS: BP 121/69
--- NOTE | 2024-05-31 04:43 | NUR ---
SHIFT SUMMARY. PATIENT IS A&OX1-2. PATIENT IS PLEASANTLY CONFUSED AND COOPERATIVE WITH CARE. PATIENT IS INCONTINENT OF BOWEL AND BLADDER-PATIENT HAS URINATED MULTIPLE TIMES TONIGHT. PATIENT REPOSITIONED Q2H. PATIENT RESTING T/O NIGHT WITH RESPIRATIONS EQUAL AND UNLABORED. PATIENTS BED IS LOCKED IN THE LOWEST POSITION WITH CALL LIGHT IN REACH. CARE IS ONGOING.
[2024-05-31 07:18] VITALS: BP 121/68
[2024-05-31] MEDS ORDERED: Cephalexin Monohydrate 500 MG Cap PO SCH (09:00)
[2024-05-31 12:12] LABS: SARS-Cov-2 (COVID-19) PCR, MMC POSITIVE (NEGATIVE)
[2024-05-31] MEDS ORDERED: DORZOLAMIDE-TIM10 ML LEFTEYE (12:20)
[2024-05-31] MEDS ORDERED: LATANOPROST2.5 M3 BOTHEYES (12:20)
[2024-05-31] MEDS ORDERED: RIVASTIGMINE6 MG PO (12:22)
[2024-05-31] MEDS ORDERED: CARBIDOPA-LEVO1 EA15 PO (12:22)
[2024-05-31] MEDS ORDERED: Keflex500 MG PO (12:32)
[2024-05-31 14:58] VITALS: BP 93/53
[2024-05-31 19:20] VITALS: BP 110/62
[2024-06-01 00:15] VITALS: BP 132/65
[2024-06-01] MEDS ORDERED: DiphenhydrAMINE HCl 50 MG/ML 1ML Vial IV ONE (00:25)
[2024-06-01 03:14] VITALS: BP 134/69
--- NOTE | 2024-06-01 04:17 | NUR ---
SHIFT SUMMARY. PATIENT IS ALERT TO SELF. PATIENT IS PLEASANT AND COOPERATIVE WITH CARE. PATIENT IS IN ISOLATION D/T POSITIVE COVID TEST. PATIENT IS TO DISCHARGE TO SNF ONCE OUT OF ISOLATION FOR COVID. RASH APPEARED ON PATIENTS FACE AND DOWN BILATERAL SHOULDERS/ARMS-PATIENT STARTED ORAL ANTIBIOTIC TODAY. PATIENT HAD A ONE TIME DOSE OF BENADRYL WITH IMPROVEMENT TO RASH/REDMESS-WILL PASS ON TO DAYSHIFT. PATIENT INCONTINENT WITH INCONTINENCE BRIEF IN PLACE. PATIENT HAS OCCASSIONAL COUGH THAT IS UNPRODUCTIVE. BED IS LOCKED IN THE LOWEST POSITION WITH CALL LIGHT IN REACH. CARE IS ONGOING.
[2024-06-01 07:23] VITALS: BP 130/56
[2024-06-01 09:35] LABS: Bun/Creatinine Ratio 29.6 (12.0-20.0); Calcium, Blood 8.7 mg/dL (8.5-10.1); Creatinine, Blood 0.78 mg/dL (0.60-1.20); Magnesium, Blood 1.9 mg/dL (1.6-2.4); Potassium, Blood 3.6 mmol/L (3.5-5.5)
[2024-06-01 14:44] VITALS: BP 88/50
[2024-06-01 14:54] VITALS: BP 114/61
--- NOTE | 2024-06-01 18:23 | NUR ---
SHIFT SUMMARY PT A&O TO SELF, FAMILY, AND PLACE ONLY, VSS, UP IN CHAIR W/ 1-2P ASSIST, TOLERATING PO, VOIDING, AND DENIED PAIN. NO OTHER ACUTE CHANGES. CALL LIGHT WITHIN REACH AND CHAIR ALARM ON FOR SAFETY.
[2024-06-01 20:02] VITALS: BP 160/85
[2024-06-02 03:05] VITALS: BP 138/63
--- NOTE | 2024-06-02 04:47 | NUR ---
SHIFT SUMMARY. PATIENT IS ALERT TO SELF. PATIENT HAS REDNESS AND EXCORIATION TO LOWER COCCYX. PATIENT Q2 TURNS. PATIENT IS PLEASANTLY CONFUSED. PATIENT HAS AN OCCASSONAL DRY COUGH. PATIENT RESTED T/O NIGHT WITH RESPIRATIONS EQUAL AND UNLABORED. BED IS LOCKED IN THE LOWEST POSITION WITH CALL LIGHT IN REACH. CARE IS ONGOING.
[2024-06-02 07:17] VITALS: BP 125/64
[2024-06-02 14:14] VITALS: BP 117/57
--- NOTE | 2024-06-02 18:26 | NUR ---
SHIFT SUMMARY NO ACUTE CHANGES THIS SHIFT. CALL LIGHT WITHIN REACH AND BED ALARM ON FOR SAFETY.
[2024-06-02 19:35] VITALS: BP 125/56
--- NOTE | 2024-06-03 05:16 | NUR ---
SHIFT SUMMARY PATIENT REMAINED IN BED ALL NIGHT. INCONT OF BM. NO PRN MEDS REQUIRED. CHNGED MEPILEX DRESING ONCE
[2024-06-03 05:22] VITALS: BP 143/65
[2024-06-03 07:43] VITALS: BP 144/62
[2024-06-03 14:28] VITALS: BP 167/73
--- NOTE | 2024-06-03 17:44 | NUR ---
SHIFT SUMMARY PT CONT TO HAVE POOR PO INTAKE AND APPEAR TO SLEEP T/O SHIFT. PT ENCOURAGED TO EAT MEALS AND OR DRINK ENSURE. NO ACUTE CHANGES. CALL LIGHT WITHIN REACH AND BED ALARM ON FOR SAFETY.
--- NOTE | 2024-06-03 17:56 | NUR ---
PT'S GRANDDAUGHTER AT BEDSIDE ASSISTING HIM W/ EATING DINNER. PT PO INTAKE IMPROVED W/ 1:1 FEEDER ASSIST.
[2024-06-03 19:53] VITALS: BP 138/76
[2024-06-04 04:04] VITALS: BP 137/76
--- NOTE | 2024-06-04 05:24 | NUR ---
SHIFT SUMMARY PATIENT SLEPT IN LONG INTERVALS. DOES NOT CALL OR TRY TO GET UP. DOES NOT REACH FOR WATER OR ANYTHING. HE RESPONDS WHEN I TALK TO HIM. I GAVE HIM HIS MEDS IN APPLESAUCE AND HE CHEWED THEM. REMAINS IN DROPLETE ISOLATION FOR COVID, HE DOES NOT COUGH EITHER.
[2024-06-04 07:35] VITALS: BP 124/66
[2024-06-04 16:22] VITALS: BP 113/68
--- NOTE | 2024-06-04 18:47 | NUR ---
PT PLEASANT TODAY. A/O X2-3, ABLE TO TELL ME SELF, , JOB, PLACE, NOT AGE OR DATE OR PRESIDENT. LUNGS CLEAR, ON R/A. NO S/S OF COVID. FAMILY IN TO VISIT TODAY. NO NEW CONCERNS NOTED. BED IN LOW POSITION, CALL LITE IN REACH, BED ALARM ON FOR SAFETY.
[2024-06-04 19:41] VITALS: BP 135/67
[2024-06-05 03:48] VITALS: BP 115/58
--- NOTE | 2024-06-05 05:37 | NUR ---
SHIFT SUMMARY PATIENT DOES NOT CALL OR EVEN CHANGE POSITION. HE DID DRINK A WHOLE ENSURE WHILE I HELD IT FOR HIM. HIS DINNER WAS UNTOUCHED IN THE ROOM. HE ANSWERS QUESTION BUT DOES NOT HAVE MOTIVATION TO MOVE.
[2024-06-05 07:18] VITALS: BP 127/64
[2024-06-05 17:07] VITALS: BP 103/61
--- NOTE | 2024-06-05 17:39 | NUR ---
SHIFT SUMMARY: PT ON COVID PRECAUTIONS. AO TO SELF AND OTHERS BUT FORGETFUL OF DATE AND REASON FOR HOSPITAL STAY. STIFF AND HARD TO MOVE. WITHDRAWN/ FLAT AFFECT. FOLLOWS COMMANDS SLOWLY. VITAL SIGNS STABLE AND NO ACUTE CHANGES IN CONDITION. PT CURRENTLY RESTING IN RECLINER WITH FAMILY AT BEDSIDE. NO RESPIRATORY DISTRESS AND HEART SOUNDS ARE NORMAL. CALL LIGHT IN REACH. CONTINUING CARE.
--- NOTE | 2024-06-05 17:54 | NUR ---
THIS [employer]SE[employer] CHORES HAS REVIEWED AND AGREES WITH ALL NOTES AND ASSESSMENTS BY DAQUAN HOLLOWAY.
[2024-06-05 21:31] VITALS: BP 136/65
[2024-06-06 04:35] VITALS: BP 126/58
--- NOTE | 2024-06-06 06:35 | NUR ---
SHIFT SUMMARY PATIENT WATCH TV SPORTS, AND SIPPED AN ENSURE WHILE I HELD IT. DID ENCOURAGE HIM TO PICKUP THE DRINKS HIMSELF. NEEDS TO BE TURNED HE DOES NOT MOVE. DOES NOT CALL OUT BUT DOES SPEAK APPROPRIATLY AT TIMES.
[2024-06-06 07:32] VITALS: BP 133/69
[2024-06-06 16:15] VITALS: BP 110/58
--- NOTE | 2024-06-06 17:05 | NUR ---
SHIFT SUMMARY: PT CONFUSED AND WITHDRAWN. ORIENTED TO SELF, STAFF AND PLACE BUT NOT TIME OR SITUATION. CAN ANSWER QUESTIONS IF ASKED DIRECTLY WITH LOW MUMBLED TONE. WAS ABLE TO GET INTO BED WITH SIT TO STAND LIFT. HAD LARGE BOWEL MOVEMENT AND MEPILEX CHANGED. WHILE MOVING. HAD TO BE FED BUT DID EAT HIS BREAKFAST AND LUNCH. PLACED INTO BED AND RESTING, BED IN LOWEST POSITON, LIGHT WITHIN REACH, FAMILY AT BEDSIDE. CONTINUING CARE.
--- NOTE | 2024-06-06 18:28 | NUR ---
THIS [employer] HAS REVIEWED AND AGREES WITH ALL NOTES AND ASSESSMENTS BY DAQUAN HOLLOWAY.
[2024-06-06 19:45] VITALS: BP 122/62
[2024-06-07 04:33] VITALS: BP 112/62
[2024-06-07 07:24] VITALS: BP 116/63
[2024-06-07 09:32] LABS: SARS-Cov-2 (COVID-19) PCR, MMC POSITIVE (NEGATIVE)
[2024-06-07] MEDS ORDERED: Levodopa/Carbidopa 100 / 25 MG Tab PO SCH (13:00)
[2024-06-07] MEDS ORDERED: LOSA50 PO (13:01)
--- NOTE | 2024-06-07 15:00 | NUR ---
CALLED REPORT TO JESSICA, GAVE REPORT TO LEVI. PT TRANSPORTED VIA WHEELCHAIR, DISCHARGE PACKET HANDED TO PRODUCT STRATEGY DIRECTOR. PT'S TRANSPORTED PERSONAL BELONGINGS. USED [id number] TO TRANSFER PT FROM BEDSIDE RECLINER TO WHEELCHAIR.
[2024-06-07] MEDS ORDERED: Rivastigmine Tartrate 1.5 MG Cap PO SCH (21:00)
== END 2024-06-07 15:45 | DRG 871 ==
LOC: ER 16:10 → MEDS 05-27 13:03
PROVIDERS: Emergency Medicine; Hospitalist; Internal Medicine; ADMIT Internal Medicine
DX: A41.50 Gram-negative sepsis, unspecified (principal); G92.8 Other toxic encephalopathy; U07.1 COVID-19; N39.0 Urinary tract infection, site not specified; G20.A1 Parkinson's disease without dyskinesia, without mention of fluctuations; F02.80 Dementia in other diseases classified elsewhere, unspecified severity, without behavioral disturbance, psychotic disturbance, mood disturbance, and anxiety; R53.1 Weakness; K56.41 Fecal impaction; I10 Essential (primary) hypertension; E87.6 Hypokalemia; G31.83 Neurocognitive disorder with Lewy bodies; Z96.643 Presence of artificial hip joint, bilateral; Z98.49 Cataract extraction status, unspecified eye; Z98.890 Other specified postprocedural states; Z87.891 Personal history of nicotine dependence; Z79.82 Long term (current) use of aspirin; Z79.2 Long term (current) use of antibiotics; Z91.048 Other nonmedicinal substance allergy status; Z79.899 Other long term (current) drug therapy
CPT/HCPCS: 36415; 51702; 74018; 80048; 80053; 81001; 83605; 83735; 85025; 85027; 87040; 87077; 87086; 87186; 97110; 97116; 97162; 97530; 99285-25; A9270; J0696; J1200; J1650; J7030; U0002